=== PATIENT | male | born 1995 | race Caucasian/White ===

== ENCOUNTER 2018-11-02 17:03 | Emergency (ER) | payer BC, OTHER ==
[~2018-11-02] VITALS: Ht 180.3 cm; Wt 104.3 kg
[2018-11-02 17:20] VITALS: BP 137/77
--- NOTE | 2018-11-02 17:20 | NUR ---
PATIENT AMBULATED TO ER BED 7.
[2018-11-02] MEDS ORDERED: ACETAMINOPHEN EXTRA STRENGTH 500 MG TAB PO ONE (17:25)
--- NOTE | 2018-11-02 17:25 | NUR ---
STREP SWAB COLLECTED, SENT TO LAB.
--- NOTE | 2018-11-02 17:43 | NUR ---
PATIENT PRESENTS TO ED WITH C/O SORE THROAT X1 DAY . -NAUSEA/-VOMITING. LUNGS CLEAR BL. PT DENIES ANY FEVER, CP, SOB, OR COUGH AT THIS TIME. PATIENT STATES PAIN OF 7/10 AT THIS TIME WHEN SWALLOWING . VSS. PATIENT POSITIONED FOR COMFORT; HOB ELEVATED; BEDRAILS UP X1; BED DOWN. ER MD TO EVALUATE PT.
[2018-11-02] MEDS ORDERED: PENICILLIN G BENZATHINE L-A 1.2 MU/2 ML SYR IM ONE (18:05)
--- NOTE | 2018-11-02 18:20 | NUR ---
Patient discharged with v/s stable. Written and verbal after care instructions given and explained. Patient alert, oriented and verbalized understanding of instructions. Ambulatory with steady gait. All questions addressed prior to discharge. ID band removed. Patient advised to follow up with PMD. Rx of Prednisone, Motrin given. Patient educated on indication of medication including possible reaction and side effects. Opportunity to ask questions provided and answered.
[2018-11-02 18:35] VITALS: BP 139/77
== END 2018-11-02 18:20 | disposition home or self-care (01) ==
LOC: MED 17:03
DX: J02.0 Streptococcal pharyngitis (principal)
CPT/HCPCS: 87081; 96372; 99283; J0561